=== PATIENT | male | born 1995 | race Caucasian/White ===

== ENCOUNTER 2017-05-30 03:23 | Inpatient (IN) | payer OTHER ==
[2017-05-30] MEDS ORDERED: NS 1,000 ML IV ONE ×3 (03:38→05:06)
[2017-05-30] MEDS ORDERED: HALOPERIDOL LACT 5 MG/ML INJ IVP ONE ×2 (03:38→04:16)
--- NOTE | 2017-05-30 03:41 | EDPHY ---
H & P Stated Complaint: Anxiety, poss food posioning Time Seen by Provider: 05/30/17 03:32 HPI/ROS: Chief Complaint: Anxiety, nausea, vomiting, body cramps HPI: 21-year-old male states he has a history of nocturnal seizures for which she takes CBD. Patient also smokes marijuana every night before he goes to bed. Patient states 2 nights ago he thinks he ate a bad eggs. It within 30 min of eating and he began throwing up. He has had multiple episodes of vomiting since. Last used marijuana 2 nights ago. No fevers or chills. No abdominal pain. This morning he has had worsening nausea vomiting and cramping. He states that for the last several days that within it makes him feel better are while hot showers. He took 1 tonight. After getting up. He has began feeling increasingly anxious and nauseated. Coban beating fast notice cramping in his hands and his feet and unable to move them. No headache. Has had some mild crampy abdominal pain. ROS: 10 point Review of Systems is negative except as noted in the HPI. PMH: Nocturnal seizures Social History: No smoking, no alcohol, daily marijuana Family History: non-contributory Physical Exam: Gen: Awake, Alert, No Distress, hyperventilating, carpal pedal spasm HEENT: Nose: no rhinorrhea Eyes: PERRLA, EOMI Mouth: Moist mucosa Neck: Supple, no JVD Chest: nontender, lungs clear to auscultation Heart: S1, S2 normal, no murmur Abd: Soft, non-tender, no guarding Back: no CVA tenderness, no midline tenderness Ext: no edema, non-tender Skin: no rash Neuro: CN II-XII intact, Sensation grossly intact, Strength 5/5 in bilateral upper and lower extremities - Personal History Current Tetanus Diphtheria and Acellular Pertussis (TDAP): Yes - Medical/Surgical History Hx Asthma: No Hx Chronic Respiratory Disease: No Hx Diabetes: No Hx Cardiac Disease: No Hx Renal Disease: No Hx Cirrhosis: No Hx Alcoholism: No Hx HIV/AIDS: No Hx Splenectomy or Spleen Trauma: No Other PMH: epileptic, - Social History Smoking Status: Never smoked Constitutional: Initial Vital Signs Temperature (C) 37.8 C 05/30/17 03:26 Heart Rate 95 05/30/17 03:26 Respiratory Rate 20 05/30/17 03:26 Blood Pressure 135/103 H 05/30/17 03:26 O2 Sat (%) 96 05/30/17 03:26 O2 Delivery Mode Room Air Allergies/Adverse Reactions: No Known Allergies Allergy (Unverified 05/30/17 03:26) Medical Decision Making ED Course/Re-evaluation: Patient has a significant leukocytosis but he has a soft, benign abdomen. He has been vomiting for 2-3 days. He has got some renal insufficiency. Will continue to aggressively hydrate him here and reassess. Patient has received 3 L of fluid, Haldol x2, Zofran x2. He still complaining of nausea vomiting. Abdomen is soft and benign. Given his leukocytosis, intractable vomiting and alterations is renal function plan will be to admit for continued hydration and further evaluation. - Data Points Laboratory Results: Laboratory Results 05/30/17 03:25 05/30/17 03:25 05/30/17 05/30/17 03:25 03:25 WBC 18.56 10^3/uL H 10^3/uL (3.80-9.50) RBC 6.34 10^6/uL 10^6/uL (4.40-6.38) Hgb 19.4 g/dL H g/dL (13.7-17.5) Hct 53.6 % H % (40.0-51.0) MCV 84.5 fL fL (81.5-99.8) MCH 30.6 pg pg (27.9-34.1) MCHC 36.2 g/dL g/dL (32.4-36.7) RDW 13.0 % % (11.5-15.2) Plt Count 370 10^3/uL 10^3/uL (150-400) MPV 10.3 fL fL (8.7-11.7) Neut % (Auto) 75.2 % H % (39.3-74.2) Lymph % (Auto) 13.7 % L % (15.0-45.0) [place] % (Auto) 10.5 % % (4.5-13.0) Eos % (Auto) 0.0 % L % (0.6-7.6) Baso % (Auto) 0.2 % L % (0.3-1.7) Nucleat RBC Rel Count 0.0 % % (0.0-0.2) Absolute Neuts (auto) 13.96 10^3/uL H 10^3/uL (1.70-6.50) Absolute Lymphs (auto) 2.55 10^3/uL 10^3/uL (1.00-3.00) Absolute Monos (auto) 1.95 10^3/uL H 10^3/uL (0.30-0.80) Absolute Eos (auto) 0.00 10^3/uL L 10^3/uL (0.03-0.40) Absolute Basos (auto) 0.03 10^3/uL 10^3/uL (0.02-0.10) Absolute Nucleated RBC 0.00 10^3/uL 10^3/uL (0-0.01) Immature Gran % 0.4 % % (0.0-1.1) Immature Gran # 0.07 10^3/uL 10^3/uL (0.00-0.10) Sodium 141 mEq/L mEq/L (135-145) Potassium 4.9 mEq/L mEq/L (3.5-5.2) Chloride 92 mEq/L L mEq/L (97-110) Carbon Dioxide 20 mEq/l L mEq/l (22-31) Anion Gap 29 mEq/L H mEq/L (8-16) BUN 29 mg/dL H mg/dL (7-23) Creatinine 1.9 mg/dL H mg/dL (0.7-1.3) Estimated GFR 46 Glucose 103 mg/dL H mg/dL (70-100) Calcium 11.1 mg/dL H mg/dL (8.5-10.4) Phosphorus 3.2 mg/dL mg/dL (2.5-4.5) Medications Given: Discontinued Medications Haloperidol Lactate (Haldol Injection) 2.5 mg IVP EDNOW ONE Stop: 05/30/17 03:39 Last Admin: 05/30/17 03:51 Dose: 2.5 mg Haloperidol Lactate (Haldol Injection) 2.5 mg IVP EDNOW ONE Stop: 05/30/17 04:17 Last Admin: 05/30/17 04:17 Dose: 2.5 mg Sodium Chloride (Ns) 1,000 mls @ 0 mls/hr IV ONCE ONE; Wide Open PRN Reason: Protocol Stop: 05/30/17 03:39 Last Admin: 05/30/17 03:50 Dose: 1,000 mls Sodium Chloride (Ns) 1,000 mls @ 0 mls/hr IV ONCE ONE; Wide Open PRN Reason: Protocol Stop: 05/30/17 04:21 Last Admin: 05/30/17 04:36 Dose: 1,000 mls Sodium Chloride (Ns) 1,000 mls @ 0 mls/hr IV ONCE ONE; Wide Open PRN Reason: Protocol Stop: 05/30/17 05:07 Last Admin: 05/30/17 05:10 Dose: 1,000 mls Ondansetron HCl (Zofran) 4 mg IVP EDNOW ONE Stop: 05/30/17 04:36 Last Admin: 05/30/17 04:36 Dose: 4 mg Departure - Departure Disposition: [facility] Acute Clinical Impression: Nausea & vomiting, Dehydration Condition: Fair
[2017-05-30 04:01] LABS: PLATELET COUNT 370 10^3/uL (150-400)
[2017-05-30] MEDS ORDERED: HALOPERIDOL LACT 5 MG/ML INJ ONE (04:15)
[2017-05-30] MEDS ORDERED: ONDANSETRON 4 MG/2 ML VIAL ONE (04:34)
[2017-05-30] MEDS ORDERED: ONDANSETRON 4 MG/2 ML VIAL IVP ONE (04:35)
[2017-05-30] MEDS ORDERED: ACETAMINOPHEN 325 MG TAB PO PRN (06:06)
[2017-05-30] MEDS ORDERED: LORazepam 2 MG/ML INJ IVP PRN (06:06)
[2017-05-30] MEDS ORDERED: PROMETHAZINE HCL 25 MG/ML INJ IVP PRN (06:06)
[2017-05-30] MEDS ORDERED: D5W 1/2 NS 1,000 ML IV SCH (06:15)
--- NOTE | 2017-05-30 06:28 | PDGENHP ---
History and Physical - Chief Complaint Nausea, vomiting - History of Present Illness 21 yo M w/ hx of seizure d/o presents with nausea and vomiting. Patient states he got food poisoning two days ago after cooking eggs on a dirty logan. He developed severe nausea and vomiting shortly after. Since, he has been unable to keep down any food or liquid. He describes a history of "nocturnal seizures" for which he takes CBD oil nightly. He also smokes marijuana nightly as a sleep aid. He denies fevers, chills, abdominal pain, or any recent illness. He does note that hot showers have been helping his nausea. History Information - Allergies/Home Medication List Allergies/Adverse Reactions: No Known Allergies Allergy (Unverified 05/30/17 03:26) I have personally reviewed and updated: family history, medical history - Past Medical History seizures - Surgical History Reports: no pertinent surgical hx - Family History Additional family history: Great grandfather had seizures - Social History Smoking Status: Never smoked Review of Systems Review of Systems: ROS: 10pt was reviewed & negative except for what was stated in HPI & below Physical Exam Physical Exam: Temp Pulse Resp BP Pulse Ox 37.8 C 65 22 H 116/68 96 05/30/17 03:26 05/30/17 06:09 05/30/17 06:09 05/30/17 06:09 05/30/17 06:15 O2 (L/minute) 2 Constitutional: appears nourished, uncomfortable Eyes: PERRL, EOMI Ears, Nose, Mouth, Throat: moist mucous membranes, no oral mucosal ulcers Cardiovascular: regular rate and rhythym, no murmur, rub, or gallop Respiratory: no respiratory distress, no rales or rhonchi Gastrointestinal: normoactive bowel sounds, soft, non-tender abdomen Skin: warm, normal color Musculoskeletal: full muscle strength, no muscle tenderness Neurologic: AAOx3, CN II-XII Intact Psychiatric: interacting appropriately, not anxious Lab Data & Imaging Review 05/30/17 03:25 05/30/17 03:25 WBC 18.56 10^3/uL (3.80-9.50) H 05/30/17 03:25 RBC 6.34 10^6/uL (4.40-6.38) 05/30/17 03:25 Hgb 19.4 g/dL (13.7-17.5) H 05/30/17 03:25 Hct 53.6 % (40.0-51.0) H 05/30/17 03:25 MCV 84.5 fL (81.5-99.8) 05/30/17 03:25 MCH 30.6 pg (27.9-34.1) 05/30/17 03:25 MCHC 36.2 g/dL (32.4-36.7) 05/30/17 03:25 RDW 13.0 % (11.5-15.2) 05/30/17 03:25 Plt Count 370 10^3/uL (150-400) 05/30/17 03:25 MPV 10.3 fL (8.7-11.7) 05/30/17 03:25 Neut % (Auto) 75.2 % (39.3-74.2) H 05/30/17 03:25 Lymph % (Auto) 13.7 % (15.0-45.0) L 05/30/17 03:25 [place] % (Auto) 10.5 % (4.5-13.0) 05/30/17 03:25 Eos % (Auto) 0.0 % (0.6-7.6) L 05/30/17 03:25 Baso % (Auto) 0.2 % (0.3-1.7) L 05/30/17 03:25 Nucleat RBC Rel Count 0.0 % (0.0-0.2) 05/30/17 03:25 Absolute Neuts (auto) 13.96 10^3/uL (1.70-6.50) H 05/30/17 03:25 Absolute Lymphs (auto) 2.55 10^3/uL (1.00-3.00) 05/30/17 03:25 Absolute Monos (auto) 1.95 10^3/uL (0.30-0.80) H 05/30/17 03:25 Absolute Eos (auto) 0.00 10^3/uL (0.03-0.40) L 05/30/17 03:25 Absolute Basos (auto) 0.03 10^3/uL (0.02-0.10) 05/30/17 03:25 Absolute Nucleated RBC 0.00 10^3/uL (0-0.01) 05/30/17 03:25 Immature Gran % 0.4 % (0.0-1.1) 05/30/17 03:25 Immature Gran # 0.07 10^3/uL (0.00-0.10) 05/30/17 03:25 Sodium 141 mEq/L (135-145) 05/30/17 03:25 Potassium 4.9 mEq/L (3.5-5.2) 05/30/17 03:25 Chloride 92 mEq/L (97-110) L 05/30/17 03:25 Carbon Dioxide 20 mEq/l (22-31) L 05/30/17 03:25 Anion Gap 29 mEq/L (8-16) H 05/30/17 03:25 BUN 29 mg/dL (7-23) H 05/30/17 03:25 Creatinine 1.9 mg/dL (0.7-1.3) H 05/30/17 03:25 Estimated GFR 46 05/30/17 03:25 Glucose 103 mg/dL (70-100) H 05/30/17 03:25 Calcium 11.1 mg/dL (8.5-10.4) H 05/30/17 03:25 Phosphorus 3.2 mg/dL (2.5-4.5) 05/30/17 03:25 Assessment & Plan Assessment: 21 yo M presents w/ intractable nausea and vomiting. Plan: 1. Nausea, vomiting - Patient thinks this was food poisoning since symptoms started shortly after eating eggs cooked in a dirty logan. This was 2 days ago, however, and symptoms persist. Patient denies any symptoms of recent illness. He does smoke marijuana daily and his symptoms are helped by hot showers so CHS is a consideration. His laboratory work-up is notable for marked leukocytosis and pre-renal azotemia. - Admit for observation - mIVF, clear liquid diet, ADAT - Zofran idalmis q6h, Phenergan and Ativan PRN 2. ELISA - Suspect pre-renal azotemia in setting of above. S/p 3L IVF in ED, will continue on mIVF. 3. Leukocytosis - I am presuming this is reactive from above. He has a benign abdominal exam, denies diarrhea, and has no other localizing symptoms of infection. Will add on LFTs and would have a low threshold for abdominal imaging if worsening. 4. Seizure d/o - Patient describes these as "nocturnal". He takes CBD oil nightly for this. Diet - Clears, ADAT Code - Full Ppx - Low risk Dispo - Admit under observation status
[2017-05-30] MEDS: ONDANSETRON 4 MG/2 ML VIAL IVP SCH ×2 (10:44→15:25)
--- NOTE | 2017-05-30 14:16 | HOSPPROG ---
Hospitalist Progress Note Assessment/Plan: Giorgi is a 21 y/o w hx of seizures. He presented to the ER w nausea and vomiting. He has a hx of 'nocturnal seizures'. He uses CBD nightly. And uses marijuana as a sleep aid. *Nausea, vomiting - Patient thinks this was food poisoning since symptoms started shortly after eating eggs cooked in a dirty logan - this occurred a few days ago and symptoms persist * ELISA - Suspect pre-renal azotemia in setting of above. -recheck labs now * Leukocytosis due to ongoing emesis recheck labs now *hypercalcemia from dehydration recheck * Seizure d/o - Patient describes these as "nocturnal". He takes CBD oil nightly for this. #plan. will see if his labs improve, see if he can eat clear liquids and then advance diet. If stable, will dc later today. Subjective: Giorgi has no nausea. Objective: Vital Signs Temp Pulse Resp BP Pulse Ox 37.0 C 61 15 120/51 L 97 05/30/17 11:30 05/30/17 11:30 05/30/17 11:30 05/30/17 11:30 05/30/17 11:30 05/29/17 05/30/17 05/31/17 05:59 05:59 05:59 Intake Total 3000 Output Total 550 Balance 2450 - Physical Exam Constitutional: no apparent distress, appears nourished, not in pain Eyes: anicteric sclera Ears, Nose, Mouth, Throat: hearing normal Cardiovascular: regular rate and rhythym Gastrointestinal: normoactive bowel sounds, soft, non-tender abdomen Skin: warm Neurologic: other (very sleepy) Psychiatric: interacting appropriately ICD10 Worksheet Patient Problems: Problems Problem Status Onset Dehydration Acute Nausea & vomiting Acute
[2017-05-30] MEDS: NS 1,000 ML IV SCH (15:29)
[2017-05-30 15:38] LABS: PLATELET COUNT 225 10^3/uL (150-400)
[2017-05-30] MEDS ORDERED: PROTOCOL POTASSIUM 1 DOSE MISC PRN (16:27)
[2017-05-30] MEDS ORDERED: POTASSIUM CL 10 MEQ TAB PO ONE (16:44)
[2017-05-30] MEDS: ONDANSETRON 4 MG/2 ML VIAL IVP PRN (18:29)
[2017-05-30] MEDS: PROMETHAZINE HCL 25 MG/ML INJ IVP PRN (19:38)
[2017-05-30] MEDS ORDERED: POTASSIUM Cl (KCl) 100 ML IV SCH (19:57)
--- NOTE | 2017-05-30 19:57 | GDS ---
[f rep st] DISCHARGE SUMMARY DISCHARGE DIAGNOSES: 1. Nausea and vomiting. 2. Acute kidney injury. 3. Leukocytosis. 4. Hypercalcemia. 5. Seizure disorder. BASIC HISTORY: Brain is a 21-year-old with a history of seizures. He presented to the ER with nausea and vomiting. He has a history of nocturnal seizures. He uses CBD nightly and uses marijuana as a sleep aid. HOSPITAL COURSE BY PROBLEM LIST: 1. Nausea and vomiting: The patient thought it was food poisoning; likely, because the symptoms occurred a few days later. He is eating and drinking well. The nausea and vomiting have resolved. 2. Acute kidney injury: Recheck his labs. Resolved. 3. Leukocytosis: White blood cell count somewhat elevated but much improved. I suspect this is from dehydration. 4. Hypercalcemia: Resolved. 5. Seizure disorder: He says they are nocturnal and he takes CBD oils for this. PENDING LABS AND TESTS: None. DISCHARGE CONDITION: Stable. Blood pressure 103/47, heart rate 69, respiratory rate 18, O2 sats on room air 98%, temperature 36.8 Celsius. MEDICATIONS AT DISCHARGE: None. DISCHARGE INSTRUCTIONS: 1. Recommending that he cut back on the cannabis. This may be causing his symptoms. 2. To eat a BRAT diet. 3. If he has ongoing emesis, diarrhea, or vomiting, and he cannot take adequate intake, return to the emergency room. /[id number]/MODL ADDENDUM: patient did not discharge. Initially, tolerated clear liquids, but had further emesis. He was not discharged. LUCIA
[2017-05-30] MEDS: POTASSIUM Cl (KCl) 10 MEQ in D5W 100 ML IV SCH ×2 (20:39→23:51)
[2017-05-31] MEDS: POTASSIUM Cl (KCl) 10 MEQ in D5W 100 ML IV SCH ×2 (00:56→02:09)
[2017-05-31] MEDS: NS 1,000 ML IV SCH ×2 (07:34→16:34)
--- NOTE | 2017-05-31 09:21 | HOSPPROG ---
Hospitalist Progress Note Assessment/Plan: Giorgi is a 21 y/o w hx of seizures. He presented to the ER w nausea and vomiting. He has a hx of 'nocturnal seizures'. He uses CBD nightly. And uses marijuana as a sleep aid. *Nausea, vomiting - Patient thinks this was food poisoning since symptoms started shortly after eating eggs cooked in a dirty logan - this occurred a few days ago and symptoms persist - he had multiple bouts of emesis last night and today - will get a KUB to further evaluate - poss hypercannibas syndrome * ELISA - Suspect pre-renal azotemia in setting of above. -resolved * Leukocytosis due to ongoing emesis improved *hypercalcemia from dehydration recheck *hypokalemia electrolyte protocol * Seizure d/o - Patient describes these as "nocturnal". He takes CBD oil nightly for this. #plan. will need another midnight stay, unable to take in adequate intake, will get a kub to r/o any potential. Recheck labs in a.m. Continue normal saline. Subjective: Giorgi is wanting to sleep and wants to be left alone. Objective: Vital Signs Temp Pulse Resp BP Pulse Ox 36.8 C 52 L 14 91/48 L 97 05/31/17 07:50 05/31/17 07:50 05/31/17 07:50 05/31/17 07:50 05/31/17 07:50 Laboratory Results 05/30/17 15:20 05/31/17 04:26 05/30/17 05/31/17 06/01/17 05:59 05:59 05:59 Intake Total 5000 Output Total 550 Balance 4450 - Physical Exam Constitutional: no apparent distress Eyes: PERRL Ears, Nose, Mouth, Throat: hearing normal Cardiovascular: regular rate and rhythym Respiratory: no respiratory distress Gastrointestinal: normoactive bowel sounds, soft, non-tender abdomen Skin: warm Musculoskeletal: full muscle strength Neurologic: AAOx3 Psychiatric: flat affect ICD10 Worksheet Patient Problems: Problems Problem Status Onset Dehydration Acute Nausea & vomiting Acute
[2017-05-31] MEDS: ONDANSETRON 4 MG/2 ML VIAL IVP PRN (09:49)
[2017-05-31] MEDS: PROMETHAZINE HCL 25 MG/ML INJ IVP PRN ×2 (10:10→16:39)
--- NOTE | 2017-05-31 13:52 | ASMTCMCOM ---
CM Note CM Note Notes: Pt in for n/v. Treats seizures and sleeps issues w CBD and marijuana No therapies ordered. Anticipate pt will d/c when medically stable No CM d/c needs identified at this time. CM available for changes/needs. Date Signed: 05/31/2017 01:51 PM Electronically Signed By:ZAHEER Garsia
--- NOTE | 2017-05-31 15:34 | PDMN ---
Medical Necessity Medical necessity: C/M review: Patient meets INPT criteria under MCG M-370 Vomiting: Acute and persistent nausea, vomiting, multiple bouts of emesis 2017 PMN and 05/31/2017, poor oral intake, acute kidney injury (resolved), BUN 29 , 17, Cr 1.9, 1.0, leukocyutosis, WBC 18.56, 12.94, hypercalcemia, Ca 11.1, 8.7 , hypokalemia, K 4.9, 3.4, 3.2, requiring recheck labs 06/01/2017, ongoing IV NS 150 ml/hr infusion, frequent doses IV Phenergan, IV Zofran, comorbid patient thinks this was food poisoning as he ate eggs cooked in a dirty logan prior to this admission, seizure disorder. [employer]ER anticipates > 2 MN LOS for ongoing med nec for eval and TX of above.
[2017-05-31] MEDS ORDERED: POTASSIUM CL 10 MEQ TAB PO ONE (20:14)
[2017-05-31] MEDS ORDERED: MELATONIN 3 MG TAB PO SCH (21:00)
[2017-06-01] MEDS: NS 1,000 ML IV SCH (00:45)
[2017-06-01 04:40] LABS: PLATELET COUNT 188 10^3/uL (150-400)
[2017-06-01] MEDS: ONDANSETRON 4 MG/2 ML VIAL IVP PRN (05:08)
[2017-06-01] MEDS ORDERED: BISACODYL 10 MG SUPP PR PRN (10:34)
[2017-06-01] MEDS ORDERED: MAGNESIUM HYDROXIDE 30 ML UDCUP PO PRN (10:34)
[2017-06-01] MEDS ORDERED: POLYETHYLENE GLYCOL 3350 17 GM PKT PO PRN (10:34)
[2017-06-01] MEDS ORDERED: LACTULOSE 20 GM/30 ML UDCUP PO PRN (10:34)
--- NOTE | 2017-06-01 10:37 | HOSPPROG ---
Hospitalist Progress Note Assessment/Plan: #Constipation: AXR normal -trial laxative and had BM #N/V: suspect due to THC; he attributes to food poisoning. Tolerating po, ADAT at home #Cannabis use: counseled on cessation #Leukocytosis: resolved #h/o DRESS: no rash, normal eosinophils #Hypokalemia: repleted #Seizure d/o: per patient. Takes CBD oil #Diet: ADAT DC today Subjective: emesis this morning. Wants laxative bc constipated x 4 days Objective: Vital Signs Temp Pulse Resp BP Pulse Ox 36.8 C 49 L 14 132/80 H 100 06/01/17 07:19 06/01/17 07:19 06/01/17 07:19 06/01/17 07:19 06/01/17 07:19 Laboratory Results 06/01/17 04:20 06/01/17 04:20 05/31/17 06/01/17 06/02/17 05:59 05:59 05:59 Intake Total 2150 Balance 2150 - Physical Exam Constitutional: unkempt Eyes: PERRL Ears, Nose, Mouth, Throat: moist mucous membranes Cardiovascular: regular rate and rhythym, no murmur, rub, or gallop Respiratory: no respiratory distress, no rales or rhonchi Gastrointestinal: normoactive bowel sounds, soft, non-tender abdomen, No tenderness Genitourinary: no bladder fullness Skin: warm Musculoskeletal: full muscle strength Neurologic: AAOx3, CN II-XII Intact Psychiatric: flat affect ICD10 Worksheet Patient Problems: Problems Problem Status Onset Dehydration Acute Nausea & vomiting Acute
[2017-06-01] MEDS ORDERED: SENNOSIDES 17.6 MG/10 ML UDL PO SCH (10:45)
[2017-06-01] MEDS ORDERED: SENNOSIDES 1 TAB PO SCH (10:45)
[2017-06-01 16:04] VITALS: BP 113/61; PULSE 57; RESP 14; TEMP 98.5; O2SAT 91
--- NOTE | 2017-06-01 16:23 | GDS ---
[f rep st] DISCHARGE SUMMARY DISCHARGE DIAGNOSES: 1. Nausea, vomiting. 2. Constipation. 3. Seizure disorder, for which he takes cannabidiol oil. 4. Cannabis use. 5. Leukocytosis. 6. Hypokalemia. 7. 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 He said pat hay got food poisoning 2 days ago after cooking eggs in a dirty logan. He developed severe nausea and vo miting shortly after. He describes a history of nocturnal seizure, for which he takes CBD oil at [facility], and also smokes marijuana nightly as a sleep aid. He denies any fevers, chills or sweats or abdo humera pain. He does note that hot showers have been helping his nausea. HOSPITAL COURSE BY PROBLEM: 1. Nausea, vomiting: Suspect this is secondary to cannabis use or possible gastroenteritis. Hot sh owers do relieve the symptoms. He is currently taking in some p.o. Constipation might have been con tributing, but he had a bowel movement today. 2. Constipation: Was provided a laxative and had bowel movement. 3. Leukocytosis: Likely secondary to dehydration and stress reaction. He has remained afebrile her e. This resolved with fluids. 4. Hypokalemia: Secondary to vomiting. This was repleted. 5. History of seizures: Per mother, he has had severe allergic reactions of medications in the past and is now using CBD oil. 6. Cannabis use: He uses this as a sleep aid. I counseled him on cessation as this is likely attri buting to his presenting diagnosis. DISPOSITION: Patient is stable for discharge home with his father. MEDICATIONS: No new medications. DIET: Was advised to advance diet as tolerated and drink plenty of fluids. FOLLOWUP: With his primary neurologist. /[id number]/MODL
[2017-06-01] MEDS ORDERED: SENNOSIDES/DOCUSATE SODIUM TAB PO SCH (21:00)
== END 2017-06-01 18:38 | disposition home or self-care (01) | DRG 392 ==
LOC: F3N 06:43 → OBSVTOIN 05-31 14:45
PROVIDERS: ADMIT Student in an Organized Health Care Education/Training Program; ATTEND Internal Medicine
DX: R11.2 Nausea with vomiting, unspecified (principal); N17.9 Acute kidney failure, unspecified; D72.829 Elevated white blood cell count, unspecified; E83.52 Hypercalcemia; E87.6 Hypokalemia; E86.0 Dehydration; K59.00 Constipation, unspecified; G40.909 Epilepsy, unspecified, not intractable, without status epilepticus; F12.10 Cannabis abuse, uncomplicated; T42.6X5D Adverse effect of other antiepileptic and sedative-hypnotic drugs, subsequent encounter
CPT/HCPCS: 96374; G0378; J1630; J2405; J2550; J3480